=== PATIENT | male | born 1980 | race Caucasian/White ===

== ENCOUNTER 2020-02-12 12:02 | Inpatient (IN) | payer OTHER, SELFPAY ==
[2020-02-12] VITALS (21 sets, daily range): BP systolic 97–140; BP diastolic 53–79; PULSE 67–110; RESP 10–18; TEMP 36.6–43; O2SAT 96–100; BMI 19.2; BMI 18.3
--- NOTE | 2020-02-12 12:04 | XR_ITS ---
PROCEDURE: XR CHEST PORTABLE CLINICAL HISTORY: fall Blunt trauma with injury and pain, contusion/abrasion or hematoma following injury COMPARISON: CT CT CHEST W CON from 02/12/2020 FINDINGS: The cardiomediastinal silhouette and pulmonary vascularity are within normal limits. Small bleb is present in the right apex. Lungs are otherwise clear. No acute bony abnormalities. IMPRESSION: No acute findings. Dictated b Karson Dahl MD 02/12/2020 12:47 Karson Dahl MD in [facility] 02/12/2020 12:47
--- NOTE | 2020-02-12 12:04 | XR_ITS ---
PROCEDURE: XR FEMUR LT 2V CLINICAL INDICATION: trauma alert Posttraumatic pain COMPARISON: No exams were available for comparison FINDINGS: There is a comminuted fracture involving the intertrochanteric region of the left femur with extension into the subtrochanteric region. The mid distal aspect of the left femur have an unremarkable appearance. The joint spaces are well-preserved. No significant degenerative/arthritic changes. No erosive changes evident. Other findings:None. IMPRESSION: Comminuted intertrochanteric fracture the left femur with extension into the subtrochanteric region Dictated b Karson Dahl MD 02/12/2020 13:14 Karson Dahl MD in [facility] 02/12/2020 13:15
--- NOTE | 2020-02-12 12:07 | PC.NURSE ---
trauma alert cancelled by dr cruz
--- NOTE | 2020-02-12 12:14 | PC.NURSE ---
1208 Dr Ortiz paged. 1210 Dr Mcgowan speaking to Dr Ortiz.
--- NOTE | 2020-02-12 12:17 | CT_ITS ---
PROCEDURE: CT HEAD/BRAIN WO CON CLINICAL INDICATION: Trauma Alert, Fall from roof Head injury with headache/pain, contusion, abrasion or hematoma COMPARISON: No exams were available for comparison TECHNIQUE: Axial images obtained. All CT scans at the facility use one or more dose reduction, viz: automated exposure control, ma/kV adjustment per patient size (including targeted exams where dose is matched to indication, i.e. head), or iterative reconstruction technique. FINDINGS: No midline shift, mass effect, intracranial hemorrhage, hydrocephalus, or extra-axial fluid collection is evident. Nonspecific decreased attenuation adjacent to the anterior horn of the right lateral ventricle is noted as well subtle decreased attenuation in the medial aspect of the right occipital lobe. These could represent areas of chronic ischemic changes. Follow-up nonemergent MRI without and with gadolinium enhancement may confirm. Cannot exclude the possibility of an acute infarction in the medial aspect of the right occipital lobe. Please correlate with clinical parameters. The calvarium has an unremarkable appearance. No mastoid effusion. There is mild mucosal thickening of the ethmoid sinuses IMPRESSION: 1. No acute intracranial hemorrhage or calvarial fracture. 2. Subtle decreased attenuation in the medial aspect of the right occipital lobe which could represent an area of infarction age indeterminate. MRI may provide further evaluation as clinically warranted. Suspect small old lacunar infarction in the right periventricular region. Dictated b Karson Dahl MD 02/12/2020 13:00 Karson Dahl MD in [facility] 02/12/2020 13:00
--- NOTE | 2020-02-12 12:17 | CT_ITS ---
PROCEDURE: CT ABDOMEN PELVIS W CON CLINICAL INDICATION: Trauma Alert, Fall from roof Blunt trauma with injury and pain, contusion/abrasion or hematoma following injury COMPARISON: No exams were available for comparison TECHNIQUE: IV Contrast: 75ML OPTIRAY 350 Oral Contrast None Axial images obtained with sagittal and coronal reformats. All CT scans at the facility use one or more dose reduction, viz: automated exposure control, ma/kV adjustment per patient size (including targeted exams where dose is matched to indication, i.e. head), or iterative reconstruction technique. FINDINGS: LOWER THORAX: No acute finding ABDOMEN & PELVIS: The liver, spleen, adrenal glands and pancreas have an unremarkable appearance. There is some slight increased density the abdominal fat in the epigastric region at the level of the celiac axis. This is nonspecific. Unremarkable appearing kidneys. No intestinal obstruction or free air. No evidence of appendicitis or diverticulitis. No free fluid. There are scattered colonic diverticula without evidence of diverticulitis. There is a shattered comminuted fracture involving the intertrochanteric region of the left femur extending into the proximal femoral shaft. Increased soft tissue density present about the fracture site consistent with hematoma IMPRESSION: 1. Comminuted left intertrochanteric and proximal femoral shaft fracture with surrounding hematoma 2. No acute intra-abdominal or pelvic findings. 3. There is some nonspecific increased density of the fat in the epigastric region. This is of questionable clinical significance. Underlying inflammation is a consideration. Pancreatitis could cause this finding. Please correlate with appropriate laboratory values Dictated b Karson Dahl MD 02/12/2020 13:10 Karson Dahl MD in [facility] 02/12/2020 13:10
--- NOTE | 2020-02-12 12:17 | CT_ITS ---
PROCEDURE: CT CERVICAL SPINE WO CON CLINICAL INDICATION: Trauma Alert, Fall from roof Posttraumatic pain Neck injury with pain, contusion/abrasion or hematoma, cervical sprain/strain the COMPARISON: CT CT HEAD/BRAIN WO CON from 02/12/2020 TECHNIQUE: Axial images obtained with sagittal and coronal reformats. All CT scans at the facility use one or more dose reduction, viz: automated exposure control, ma/kV adjustment per patient size (including targeted exams where dose is matched to indication, i.e. head), or iterative reconstruction technique. Axial spiral CT scanning performed of the cervical spine beginning at the base of the skull and continuing to the upper T-spine. 3-D multiplanar reconstruction with 3-D manipulation of volumetric data set in image rendering was completed by the radiologist and/or technologist with the supervision of the radiologist on independent workstation. FINDINGS: Normal alignment. No acute fracture or dislocation. There is degenerative disc disease at C5-C6. The there is some straightening of the cervical lordosis nonspecific. There is mild lower cervical curvature convex left. There are scattered small cervical lymph nodes and there is some asymmetric increased soft tissue density in the left nasopharyngeal region. Nonemergent follow-up CT neck without and with contrast may provide further evaluation. IMPRESSION: 1. No acute fracture. 2. Straightening of lordosis with cervical curvature convex left. 3. Degenerative disc disease C5-C6. 4. Mildly prominent cervical lymph nodes with mild prominence of the nasopharyngeal mucosa on the left. Nonemergent follow-up without and with contrast may provide further evaluation. Dictated b Karson Dahl MD 02/12/2020 13:05 Karson Dahl MD in [facility] 02/12/2020 13:05
--- NOTE | 2020-02-12 12:19 | CT_ITS ---
PROCEDURE: CT CHEST W CON CLINCAL INDICATION: Trauma Alert, Fall Blunt trauma with injury and pain, contusion/abrasion or hematoma following injury Fall from COMPARISON: CT CT ABDOMEN PELVIS W CON from 02/12/2020 TECHNIQUE: IV Contrast: 75ml Optiray 350 Axial images obtained with sagittal and coronal reformats. All CT scans at the facility use one or more dose reduction, viz: automated exposure control, ma/kV adjustment per patient size (including targeted exams where dose is matched to indication, i.e. head), or iterative reconstruction technique. FINDINGS: HEART AND MEDIASTINAL STRUCTURES: Mild prominence of the thyroid gland on both sides. No mediastinal or hilar mass or adenopathy. No evidence of aortic aneurysm or dissection. No evidence mediastinal hematoma LUNGS AND PLEURAL SPACES: There is a small right apical blebs with mild fibrotic changes in the lung apices. No evidence of pneumothorax. There are few small noncalcified pulmonary nodules including a 3 and 4 mm and a 2 mm noncalcified nodule in the left upper lobe. Patchy density is present in the lingula inferiorly along the major fissure. There is hyperinflation with attenuation of the peripheral pulmonary vessels consistent with COPD BONY STRUCTURES: Mild thoracic scoliosis convex right. No acute fracture is identified UPPER ABDOMEN: Please see abdomen report ADDITIONAL FINDINGS: No other significant abnormalities. IMPRESSION: 1. No acute finding. 2. COPD with nonspecific nodular opacities in the left upper lobe. Suggest 6 month follow-up 3. Patchy subpleural infiltrate in the left lobe Dictated b Karson Dahl MD 02/12/2020 12:57 Karson Dahl MD in [facility] 02/12/2020 12:57
--- NOTE | 2020-02-12 12:19 | PC.NURSE ---
received patient to ed by wheelchair from home. pt is s/p fall approx 15 feet at 1130 today off of a roof. pt denies loc. pt c/o left femur pain. pt is awake and alert. pt denies neck or back pain. pt is pale and diaphoretic at this time. bp stable. trauma alert called. trauma team to bedside. c collar placed to patient. pt to cardiac, spo2,nibp monitoring. iv site obtained. pt undressed to inspect body for injury and warmed with warm blankets. dr cruz at bedside. awaiting further orders.
--- NOTE | 2020-02-12 12:23 | PC.NURSE ---
Pt to rad.
--- NOTE | 2020-02-12 12:23 | PC.NURSE ---
patient to ct by stretcher for trauma scans at this time.
[2020-02-12 12:30] LABS: Basophils # 0.1 K/mm3 (0-0.2); Basophils % 0.6 % (0.1-2.0); Eosinophils # 0.2 K/mm3 (0.0-0.4); Eosinophils % 1.3 % (0.1-12.0); Hematocrit 40.9 % (42.0-52.0); Hemoglobin 14.1 g/dL (14.1-18.0); Lymphocytes # 5.3 K/mm3 (0.7-4.5); Lymphocytes % 43.9 % (10-50); Mean Corpuscular HGB Conc 34.3 g/dL (31.8-35.4); Mean Corpuscular Hemoglobin 31.7 pg (27.0-31.2); Mean Corpuscular Volume 92.3 fl (80-94); Mean Platelet Volume 7.8 fl (7.4-10.4); Monocytes # 0.6 K/mm3 (0.1-1.0); Neutrophils % 49.3 % (37.0-80.0); Platelet Count 309 K/mm3 (142-424); Red Blood Count 4.43 M/mm3 (4.60-6.20); Red Cell Distribution Width 13.3 % (11.5-17.5); White Blood Count 12.1 K/mm3 (4.8-10.8)
[2020-02-12 12:32] LABS: Alanine Aminotransferase 32 U/L (12-78); Albumin Level 4.9 g/dl (3.5-5.0); Albumin/Globulin Ratio 1.4 (1.1-1.8); Alkaline Phosphatase 69 U/L (38-126); Anion Gap 18.1 mEq/L (5-15); Aspartate Amino Transferase 50 U/L (17-59); Bilirubin,Total 0.8 mg/dl (0.2-1.3); Blood Urea Nitrogen 13 mg/dl (9-20); Calcium 9.9 mg/dl (8.4-10.2); Carbon Dioxide 24 mmol/L (22.0-30.0); Chloride 100 mmol/L (98-107); Creatinine Clearance Estimated 80 mL/min (50-200); Estimated Glomerular Filt Rate 82 ml/min (>60); GFR (African American) 99 ML/MIN (>60); Globulin 3.4 g/dL (1.3-3.2); Glucose 97 mg/dl (74-100); Potassium 3.1 mmoL/L (3.5-5.1); Sodium 139 mmol/L (136-145); Total Protein,Serum 8.3 g/dl (6.3-8.2)
--- NOTE | 2020-02-12 12:32 | HMH.EDGENADL ---
ED Disposition Clinical Impression: Closed left hip fracture Qualifiers: Encounter type: initial encounter Qualified Code(s): S72.002A - Fracture of unspecified part of neck of left femur, initial encounter for closed fracture Fall from roof Qualifiers: Encounter type: initial encounter Qualified Code(s): W13.2XXA - Fall from, out of or through roof, initial encounter Disposition: Admitted As Inpatient Condition on Discharge: Fair - Critical Care Critical Care Time: No Attestation: On , the high probability of a clinically significant, sudden or life threatening deterioration of the following system(s) required my full and direct attention, intervention and personal management. The time I documented below is in addition to time spent performing reported procedures but includes the following listed in this critical care notation. Medical Decision Making - Thor Inquiry Pt receiving controlled substance: Yes Thor was queried for this patient: No Reason not queried -: Emergent pt cond-no time Risks and benefits of using a controlled substance: were not discussed with pt by me Vital Signs: 02/12/20 12:07 02/12/20 12:15 02/12/20 12:45 Temperature 98.0 F Temperature Source Oral Pulse Rate Pulse Rate [Right Radial] 85 83 96 H Respiratory Rate 17 Blood Pressure Blood Pressure [Right Arm] 102/73 L 118/64 117/73 Blood Pressure Mean [Right Arm] 82 82 87 Blood Pressure Source [Right Arm] Automatic Cuff Blood Pressure Position Blood Pressure Position [Right Arm] Sitting Sitting 02 Sat by Pulse Oximetry 98 100 Oxygen Delivery Method 02/12/20 13:14 02/12/20 13:43 02/12/20 14:22 Temperature Temperature Source Pulse Rate Pulse Rate [Right Radial] 71 70 78 Respiratory Rate Blood Pressure Blood Pressure [Right Arm] 109/54 L 97/53 L 106/57 L Blood Pressure Mean [Right Arm] 72 67 73 Blood Pressure Source [Right Arm] Automatic Cuff Automatic Cuff Automatic Cuff Blood Pressure Position Blood Pressure Position [Right Arm] Sitting Sitting Sitting 02 Sat by Pulse Oximetry 98 98 Oxygen Delivery Method Room Air Room Air 02/12/20 15:03 02/12/20 16:00 02/12/20 17:00 Temperature Temperature Source Pulse Rate Pulse Rate [Right Radial] 96 H Respiratory Rate Blood Pressure Blood Pressure [Right Arm] 122/74 104/60 L Blood Pressure Mean [Right Arm] 90 74 Blood Pressure Source [Right Arm] Automatic Cuff Blood Pressure Position Blood Pressure Position [Right Arm] Sitting 02 Sat by Pulse Oximetry Oxygen Delivery Method Simple Mask 02/12/20 17:44 Temperature 98 F Temperature Source Oral Pulse Rate 78 Pulse Rate [Right Radial] Respiratory Rate 16 Blood Pressure 104/78 L Blood Pressure [Right Arm] Blood Pressure Mean [Right Arm] Blood Pressure Source [Right Arm] Blood Pressure Position Sitting Blood Pressure Position [Right Arm] 02 Sat by Pulse Oximetry Oxygen Delivery Method Room Air - Lab Data Lab Results 02/12/20 12:00: WBC 12.1 H, RBC 4.43 L, Hgb 14.1, Hct 40.9 L, MCV 92.3, MCH 31.7 H, MCHC 34.3, RDW 13.3, Plt Count 309, MPV 7.8, Neut % (Auto) 49.3, Lymph % (Auto) 43.9, [place] % (Auto) 5.0, Eos % (Auto) 1.3, Baso % (Auto) 0.6, Neut # (Auto) 6.0, Lymph # (Auto) 5.3 H, [place] # (Auto) 0.6, Eos # (Auto) 0.2, Baso # (Auto) 0.1 02/12/20 12:00: Sodium 139, Potassium 3.1 L, Chloride 100, Carbon Dioxide 24, Anion Gap 18.1 H, BUN 13, Creatinine 1.00, Estimated Creat Clear 80, Estimated GFR 82, Est GFR ( Amer) 99, Glucose 97, Calcium 9.9, Total Bilirubin 0.8, AST 50, ALT 32, Alkaline Phosphatase 69, Total Protein 8.3 H, Albumin 4.9, Globulin 3.4 H, Albumin/Globulin Ratio 1.4 02/12/20 12:00: Amylase 82, Lipase 196 02/12/20 14:39: Urine Color Yellow, Urine Appearance Clear, Urine pH 7.0, Ur Specific [place] 1.010, Urine Protein Negative, Urine Glucose (UA) Negative, Urine Ketones Negative, Urine Blood Negative, Urine Nitrate Negative, Urine Bilirubi
--- NOTE | 2020-02-12 13:00 | PC.NURSE ---
FRIEND AT BEDSIDE
[2020-02-12 14:45] LABS: Microscopic, Urine URINE MICROSCOPIC (MICROSCOPIC)
--- NOTE | 2020-02-12 14:49 | PC.NURSE ---
Dr Mcgowan speaking with Dr Cruz who is on for service.
[2020-02-12 14:50] LABS: Appearance,Urine CLEAR (Clear); Bilirubin,Urine Negative (Negative); Blood, Urine Negative (Negative); Color,Urine YELLOW (Yellow); Glucose,Urine (UA) Negative (Negative); Ketones,Urine Negative (Negative); Leukocyte Esterase,Urine Negative (Negative); Nitrate,Urine Negative (Negative); Protein,Urine Negative (Negative); Urobilinogen,Urine 0.2 EU/dl (0.2)
--- NOTE | 2020-02-12 14:51 | PC.NURSE ---
anesthesia at bedside for surgical eval.
[2020-02-12 14:58] LABS: Squamous Epithelial Cell,Urine Occasional #/hpf (0-5)
--- NOTE | 2020-02-12 15:10 | PC.NURSE ---
PT UPDATED ON PLAN OF CARE
[2020-02-12 15:17] LABS: Adenovirus,PCR Not Detected (NotDetected); Bordetella Pertussis Not Detected (NotDetected); Chlamydophila Pneumoniae, PCR Not Detected (NotDetected); Coronavirus 19, PCR Not Detected (NotDetected); Coronavirus 229E Not Detected (NotDetected); Coronavirus NL63 Not Detected (NotDetected); Coronavirus OC43 Not Detected (NotDetected); Coronovirus HKU1,PCR Not Detected (NotDetected); Human Metapneumovirus Not Detected (NotDetected); Influenza A, PCR Not Detected (NotDetected); Influenza AH1, 2009 Not Detected (NotDetected); Influenza AH1, PCR Not Detected (NotDetected); Influenza AH3,PCR Not Detected (NotDetected); Influenza B, PCR Not Detected (NotDetected); Mycoplasma Pneumoniae, PCR Not Detected (NotDetected); Parainfluenza 1, PCR Not Detected (NotDetected); Parainfluenza 2, PCR Not Detected (NotDetected); Parainfluenza 3, PCR Not Detected (NotDetected); Parainfluenza 4, PCR Not Detected (NotDetected); Respiratory Syncytial Virus Not Detected (NotDetected); Rhinovirus/Enterovirus Not Detected (NotDetected)
--- NOTE | 2020-02-12 15:33 | PC.NURSE ---
Pt to remain in ED until COVID results are released.
[2020-02-12 15:42] LABS: Amylase 82 U/L (30-110); Lipase 196 U/L (23-300)
--- NOTE | 2020-02-12 16:35 | HMH.ACPN2 ---
<Em Hernandez - Last Filed: 02/12/20 17:15> Internal Medicine - PN: Subj *Date: 02/12/20 *Time: 17:15 Interval history: Mr. Harry is a 40yo male who fell 15 feet off of a roof and landed directly on his left hip. He was evaluated in the ER and found to have a left femur fracture. He is being admitted to Dr. Ortiz for surgery. Our office was called for a consult for his hypokalemia. He has no other medical problems. Exam Vital signs and Labs for Last 24 Hours: Temp Pulse Resp BP Pulse Ox 98.0 F 78 17 122/74 98 02/12/20 12:07 02/12/20 14:22 02/12/20 12:07 02/12/20 15:03 02/12/20 13:43 Laboratory Results - last 24 hr 02/12/20 12:00: WBC 12.1 H, RBC 4.43 L, Hgb 14.1, Hct 40.9 L, MCV 92.3, MCH 31.7 H, MCHC 34.3, RDW 13.3, Plt Count 309, MPV 7.8, Neut % (Auto) 49.3, Lymph % (Auto) 43.9, [place] % (Auto) 5.0, Eos % (Auto) 1.3, Baso % (Auto) 0.6, Neut # (Auto) 6.0, Lymph # (Auto) 5.3 H, [place] # (Auto) 0.6, Eos # (Auto) 0.2, Baso # (Auto) 0.1 02/12/20 12:00: Sodium 139, Potassium 3.1 L, Chloride 100, Carbon Dioxide 24, Anion Gap 18.1 H, BUN 13, Creatinine 1.00, Estimated Creat Clear 80, Estimated GFR 82, Est GFR ( Amer) 99, Glucose 97, Calcium 9.9, Total Bilirubin 0.8, AST 50, ALT 32, Alkaline Phosphatase 69, Total Protein 8.3 H, Albumin 4.9, Globulin 3.4 H, Albumin/Globulin Ratio 1.4 02/12/20 12:00: Amylase 82, Lipase 196 02/12/20 14:39: Urine Color Yellow, Urine Appearance Clear, Urine pH 7.0, Ur Specific [place] 1.010, Urine Protein Negative, Urine Glucose (UA) Negative, Urine Ketones Negative, Urine Blood Negative, Urine Nitrate Negative, Urine Bilirubin Negative, Urine Urobilinogen 0.2, Ur Leukocyte Esterase Negative, Urine RBC None, Urine WBC None, Ur Squamous Epith Cells Occasional, Urine Bacteria None I & O for Last 24 hours: Intake & Output 02/10/20 02/11/20 02/12/20 02/13/20 11:59 11:59 11:59 11:59 Weight 130 lb - Constitutional no acute distress - *Routine Cardiovascular Exam Present: RRR - *Routine Abdominal Exam Present: soft, normoactive bowel sounds. Absent: tenderness - *Routine Extremities Exam Absent: cyanosis, clubbing, edema - *Routine Skin Exam Present: warm. Absent: rash - *Routine Neurological Exam Present: alert, oriented X3 Assessment and Plan (1) Closed left hip fracture Current visit: Yes Status: Acute Qualifiers: Encounter type: initial encounter Qualified Code(s): S72.002A - Fracture of unspecified part of neck of left femur, initial encounter for closed fracture Category: Medical Code(s): S72.002A - Fracture of unspecified part of neck of left femur, initial encounter for closed fracture (2) Hypokalemia Current visit: Yes Status: Acute Category: Medical Code(s): E87.6 - Hypokalemia (3) Fall from roof Current visit: Yes Status: Acute Qualifiers: Encounter type: initial encounter Qualified Code(s): W13.2XXA - Fall from, out of or through roof, initial encounter Category: Medical Code(s): W13.2XXA - Fall from, out of or through roof, initial encounter - Assessment and plan all Dx Assessment and Plan for all problems:: Will start on potassium supplementation and also get an EKG prior to surgery. <Myron Cruz - Last Filed: 02/12/20 17:51> Internal Medicine - PN: Subj *Date: 02/12/20 *Time: 17:49 Exam Vital signs and Labs for Last 24 Hours: Temp Pulse Resp BP Pulse Ox 98 F 78 16 104/78 L 98 02/12/20 17:44 02/12/20 17:44 02/12/20 17:44 02/12/20 17:44 02/12/20 13:43 Laboratory Results - last 24 hr 02/12/20 12:00: WBC 12.1 H, RBC 4.43 L, Hgb 14.1, Hct 40.9 L, MCV 92.3, MCH 31.7 H, MCHC 34.3, RDW 13.3, Plt Count 309, MPV 7.8, Neut % (Auto) 49.3, Lymph % (Auto) 43.9, [place] % (Auto) 5.0, Eos % (Auto) 1.3, Baso % (Auto) 0.6, Neut # (Auto) 6.0, Lymph # (Auto) 5.3 H, [place] # (Auto) 0.6, Eos # (Auto) 0.2, Baso # (Auto) 0.1 02/12/20 12:00: Sodium 139, Potassium 3.1 L, Chloride 100, Carbo
--- NOTE | 2020-02-12 17:08 | PC.NURSE ---
Pt arrived to the floor at this time via stretcher.
--- NOTE | 2020-02-12 17:46 | HMH.ORTHHP ---
*Admission Date: 02/12/20 *Reason for consult:: L femur fracture *History of present illness: 40-year-old gentleman presented to the ER this afternoon after falling approximately 15 feet off of a roof. The time of injury was around 12 PM. This occurred on the job; he works for a [employer] and this is a Worker's Compensation injury. He reports claim has already been filed. He reports pain localized to the left hip, no pain in any other extremity. No neck pain, no head pain, no current dizziness or chest pain, no abdominal pain. No numbness or tingling in the left lower extremity. No open wounds such as abrasions, lacerations or any areas of ecchymosis. He presented to the ER as a trauma and full primary and secondary surveys completed by the ER physician. CT scans of the head, cervical spine, abdomen/pelvis were performed and negative. He denies LOC during the event. He has never injured this hip or had surgery on this hip previously. He does not currently have a primary care physician and denies underlying medical issues. He denies alcohol use but smokes 1 pack of cigarettes at at least 1 joint (THC) per day. No other illicit drug use reported. He has had surgery on B/L wrists due to a fall with simultaneous B/L wrist fractures. He reports no daily prescription medication usage and no known drug allergies. He lives in [place] with his significant other in a ground level apartment. [facility] History I have reviewed the patient's past medical history: Yes Medical History: Denies:: Cancer, Diabetes Mellitus Type 1, Diabetes Mellitus Type 2, MRSA *Have you ever received a pneumonia vaccine?: No *Have you received a flu vaccine this season?: No Other Surgeries: Yes: Other (Bilateral wrist sx) Amputation: No Fractures: Yes - *Social History Last grade of school completed: High school graduate Smoking Status: Current every day smoker Tobacco Type: cigarettes # Packs/Day (cigarettes): 1 Alcohol Intake: never Substance Use Type: marijuana Last Used Substance: days (ago) *Occupational Status:: employed Housing: apartment Household Members: significant other *Travel in the last 8 weeks: None Family Hx:: Diabetes, Heart Attack Review of Systems - Review of Systems Review of systems:: pertinent systems reviewed and negative unless documented below - Constitutional Denies chills, Denies fever(s) - Eyes Denies blurry vision - ENT Denies abnormal hearing, Denies dizziness - *Cardiovascular Denies chest pain, Denies shortness of breath, Denies rapid, pounding, or irregular heartbeat - *Respiratory Denies cough, Denies shortness of breath - *Gastrointestinal Denies abdominal pain - *Genitourinary Denies difficulty urinating - *Musculoskeletal Reports joint pain - Integumentary/Breasts Denies wounds - *Neurologic Denies headache(s), Denies numbness, Denies weakness Meds Home Medications Medication Instructions Recorded Confirmed Type No Known Home Medications 02/12/20 02/12/20 History Allergies Allergy/AdvReac Type Severity Reaction Status Date / Time No Known Allergies Allergy Verified 02/12/20 12:18 Exam Vital signs and Labs for Last 24 Hours: Temp Pulse Resp BP Pulse Ox 98 F 78 16 104/78 L 98 02/12/20 17:44 02/12/20 17:44 02/12/20 17:44 02/12/20 17:44 02/12/20 13:43 Laboratory Results - last 24 hr 02/12/20 12:00: WBC 12.1 H, RBC 4.43 L, Hgb 14.1, Hct 40.9 L, MCV 92.3, MCH 31.7 H, MCHC 34.3, RDW 13.3, Plt Count 309, MPV 7.8, Neut % (Auto) 49.3, Lymph % (Auto) 43.9, [place] % (Auto) 5.0, Eos % (Auto) 1.3, Baso % (Auto) 0.6, Neut # (Auto) 6.0, Lymph # (Auto) 5.3 H, [place] # (Auto) 0.6, Eos # (Auto) 0.2, Baso # (Auto) 0.1 02/12/20 12:00: Sodium 139, Potassium 3.1 L, Chloride 100, Carbon Dioxide 24, Anion Gap 18.1 H, BUN 13, Creatinine 1.00, Estimated Creat Clear 80, Estimated GFR 82, Est GFR ( Amer) 99, Glucose 97, Calcium 9.9, Total Bilirubin 0.8, AST 50, ALT 32, Alkaline Maggi
--- NOTE | 2020-02-12 17:49 | ECG_ITS ---
APPROVED REPORT Exam: Resting ECG HR:56 bpm ECG Measurements Heart Rate 56 AXES GA 130 P 65 QRSd 74 QRS 68 QT 464 T 61 QTc 447 <Conclusion> Sinus bradycardia with sinus arrhythmia Otherwise normal ECG Electronically signed by : Renato Kaminski, 02/13/2020 07:51:48
--- NOTE | 2020-02-12 18:34 | XR_ITS ---
PROCEDURE: XR HIP LT 2-3V W/PELVIS CLINICAL INDICATION: LEFT HIP ORIF USING C-ARM GUIDANCE COMPARISON: No exams were available for comparison FINDINGS: Fluoroscopy time: 11 minutes and 43 seconds C-arm is utilized for ORIF the left intertrochanteric fracture. Multiple images are submitted during the procedure showing placement of a long intramedullary ame stabilized with cortical screws with 2 gamma nails with good alignment of the fracture fragments. IMPRESSION: Status post ORIF left intertrochanteric fracture with good alignment Dictated b Karson Dahl MD 02/13/2020 06:47 Karson Dahl MD in [facility] 02/13/2020 06:47
--- NOTE | 2020-02-12 19:47 | HMH.ANESCL ---
[facility] Anesthesia Checklist - Patient Identification Patient Identification: Arm Band, Verbal (Name & ) - Structural Data Admitted From: Inpatient Planned Operative Procedure/s: Left hip IM nailing Consent for Planned Operative Procedure(s) Verified: Yes Verified Documents: Surgical Consent, History and Physical - NPO Status Verified Time NPO: 11:30 - Chart Verification Results Verified: CBC, BMP - Additional verifications Anesthesia Reactions: No - Airway Assessment C-Spine Mobility Assessed: Yes (MP 2, TMD 3, Full neck ROM, pink tongue, adequate mouth opening) TMJ Mobility Assessed: Yes Dentition: Edentulous - Neurological Assessment Level of Consciousness: Awake, Alert, Appropriate, Follows Commands Hx Seizures: No Numbness or tingling in extremities: No - Anesthesia Plan Anesthesia Risk discussed: Yes Anesthesia Plan: Verified ASA Class: II (Emergent) Anesthesia Type: General [facility] History I have reviewed the patient's past medical history: Yes Medical History: Denies:: Cancer, Diabetes Mellitus Type 1, Diabetes Mellitus Type 2, MRSA *Have you ever received a pneumonia vaccine?: No *Have you received a flu vaccine this season?: No Anesthesia experience/problems:: None Amputation: No Fractures: Yes Comment: Left wrist ORIF - *Social History Last grade of school completed: High school graduate Smoking Status: Current every day smoker Tobacco Type: cigarettes # Packs/Day (cigarettes): 1 Alcohol Intake: never Substance Use Type: marijuana Last Used Substance: days (ago) *Occupational Status:: employed Housing: apartment Household Members: significant other *Travel in the last 8 weeks: None Family Hx:: Diabetes, Heart Attack
--- NOTE | 2020-02-12 22:56 | P.PN_ITS ---
[facility] Anesthesia Record Part I Intake, IV Amount: 1,400 Estimated blood loss (mL): 250 Urine output (mL): 0 (NM) Blood Products used (#): none Blood Pressure: 125/74 SaO2: 96 Pulse Rate: 106 Respiratory Rate: 10 Temperature: 99.0 F Patient is:: Drowsy, Stable Stable to PACU at:: 22:50
--- NOTE | 2020-02-12 23:18 | HMH.OPNOTE ---
Date of procedure: 02/12/20 Pre-op Diagnosis:: intertrochanteric fracture L femur Post-op Diagnosis:: intertrochanteric fracture L femur Procedure performed:: intramedullary nail L femur Surgeon:: Tiana Ortiz MD Track Laying Equipment Operator(s):: Asher Cross CLASP MACHINE OPERATOR:: Arcenio Slaughter Anesthesia: GETA Estimated blood loss (mL): 250 Clinical Note:: 40-year-old gentleman presented to the ER this afternoon after falling approximately 15 feet off of a roof. The time of injury was around 12 PM. This occurred on the job; he works for a [employer] company and this is a Worker's Compensation injury. He reports claim has already been filed. He reports pain localized to the left hip, no pain in any other extremity. No neck pain, no head pain, no current dizziness or chest pain, no abdominal pain. No numbness or tingling in the left lower extremity. No open wounds such as abrasions, lacerations or any areas of ecchymosis. He presented to the ER as a trauma and full primary and secondary surveys completed by the ER physician. CT scans of the head, cervical spine, abdomen/pelvis were performed and negative. He denies LOC during the event. X-rays of the L femur revealed an intertrochanteric femur fracture, comminuted with subtrochanteric extension. He has never injured this hip before or had surgery on this hip previously. He does not currently have a primary care physician and denies underlying medical issues. He denies alcohol use but smokes 1 pack of cigarettes at at least 1 joint (THC) per day. No other illicit drug use reported. He has had surgery on B/L wrists due to a fall with simultaneous B/L wrist fractures. He reports no daily prescription medication usage and no known drug allergies. I discussed the nature of the patient's injury with him and his significant other, along with the risks/benefits of both operative and nonoperative treatments. I discussed the risks of malunion, nonunion, lower extremity malrotation and persistent pain/limp, decubitus ulcers, DVT/PE, pneumonia, and other medical complications of prolonged immobilization that would be at risk with nonoperative treatment. I also discussed the risks of surgical treatment, including but not limited to: bleeding, infection, neurovascular damage, fracture propagation changing the surgical plan, hardware failure, nonunion, malunion, persistent pain/limp and/or disability despite surgical intervention, need for later revision surgery or hardware removal, and the risks of anesthesia including heart attack, stroke and even . The patient vocalized understanding of the above risks and has elected to proceed with surgery. My recommendation is for an intramedullary nail of the left femur. Informed consent was obtained. He was seen by Dr. Cruz pre-operatively, who deemed the patient at low and acceptable risk for the procedure. Operative findings:: intertrochanteric fracture L femur, comminuted with subtrochanteric extension Implants: Pal [employer]hew Intertan antegrade femoral IMN Nail = 10 x 40cm, 125 degree Compression/Lag screws = 105 / 100mm Distal interlocking screws (2) = 5.0 x 42.5mm, 5.0 x 57.5mm Operative note:: The patient was identified in preoperative holding and the L hip signed by myself. Consent was reviewed with the patient and all questions answered. He was seen by CLASP MACHINE OPERATOR and the decision made to perform general endotracheal anesthesia. The patient was then taken to the operating room where 1 gram cefazolin was administered intravenously and general anesthsia induced with the patient on his bed. Once the patient was anesthetized, he was transferred to the fracture table. The perineum was snugged up to the perineal post and BLE secured on the table. The L leg was secured to the foot plate of the fracture table and the R leg placed in a flexed/externally rotated position on well-padded leg nowak. Timeout was performed, identifying the correct patient, correct procedure and correct site. Next the L hip
--- NOTE | 2020-02-12 23:31 | PC.NURSE ---
patient up to floor from surgery via stretcher by staff.
[2020-02-13] VITALS (13 sets, daily range): BP systolic 114–138; BP diastolic 50–71; PULSE 63–97; RESP 14–18; TEMP 36.5–36.9; O2SAT 97–100; BMI 19.1
--- NOTE | 2020-02-13 03:27 | PC.NURSE ---
Pt A&OX4. pt c/o of L hip and leg pain medicated per AUG. Lungs CTA. IS has been in used while awake reach 1999. Surgical dressing in place c/d/i. ice pack and abductor pillow in place. SCUD on right leg. Pt has tolerated diet well.
--- NOTE | 2020-02-13 04:00 | PC.NURSE ---
Pt A&OX4. pt c/o of L hip and leg pain medicated per AUG. Lungs CTA. IS has been in used while awake reach 1999. Surgical dressing in place c/d/i. ice pack in place. SCUD on right leg. Pt has tolerated diet well
[2020-02-13 06:37] LABS: Chloride 106 mmol/L (98-107); Sodium 137 mmol/L (136-145)
[2020-02-13 06:38] LABS: Potassium 4.3 mmoL/L (3.5-5.1)
[2020-02-13 06:40] LABS: Blood Urea Nitrogen 14 mg/dl (9-20); Creatinine Clearance Estimated 84 mL/min (50-200); Estimated Glomerular Filt Rate 93 ml/min (>60); GFR (African American) 112 ML/MIN (>60)
[2020-02-13 06:41] LABS: Anion Gap 9.3 mEq/L (5-15); Carbon Dioxide 26 mmol/L (22.0-30.0); Glucose 136 mg/dl (74-100)
[2020-02-13 06:53] LABS: Basophils % 0.1 % (0.1-2.0); Eosinophils % 0.1 % (0.1-12.0); Lymphocytes # 1.4 K/mm3 (0.7-4.5); Mean Corpuscular HGB Conc 34.6 g/dL (31.8-35.4); Mean Platelet Volume 8.1 fl (7.4-10.4); Red Cell Distribution Width 13.5 % (11.5-17.5)
[2020-02-13 07:00] LABS: Hematocrit 27.6 % (42.0-52.0); Lymphocytes % 9.6 % (10-50); Mean Corpuscular Hemoglobin 31.9 pg (27.0-31.2); Mean Corpuscular Volume 92.3 fl (80-94); Neutrophils # 11.8 K/mm3 (1.8-7.8); Neutrophils % 83.1 % (37.0-80.0); Platelet Count 179 K/mm3 (142-424); Red Blood Count 2.99 M/mm3 (4.60-6.20); White Blood Count 14.2 K/mm3 (4.8-10.8)
[2020-02-13 07:03] LABS: Hemoglobin 9.5 g/dL (14.1-18.0)
--- NOTE | 2020-02-13 07:07 | HMH.ANESII ---
[facility] Anesthesia Record Part II Discharge Time: 23:20 Destination: Medical Surgical Department PACU nurse assessment reviewed?: Yes Patient Condition:: Good Anesthesia Complications:: None Swallowing reflex intact?: Yes Cyanosis?: No Blood Pressure: 125/67 Pulse Rate: 82 Temperature: 98.5 F Mental Status: Alert & Oriented Pain level:: 4 Nausea and/or vomitting:: Nauseated Intake, IV Amount: 0
--- NOTE | 2020-02-13 07:16 | HMH.ACPN2 ---
Internal Medicine - PN: Subj *Date: 02/13/20 *Time: 07:16 Interval history: Patient with no new complaints today, still has a little numbness in his left foot, he is hungry and wants breakfast, he is anxious to go home. Exam Vital signs and Labs for Last 24 Hours: Temp Pulse Resp BP Pulse Ox 98.5 F 82 16 125/67 99 02/13/20 07:09 02/13/20 07:09 02/13/20 06:15 02/13/20 07:09 02/13/20 06:15 Laboratory Results - last 24 hr 02/12/20 12:00: WBC 12.1 H, RBC 4.43 L, Hgb 14.1, Hct 40.9 L, MCV 92.3, MCH 31.7 H, MCHC 34.3, RDW 13.3, Plt Count 309, MPV 7.8, Neut % (Auto) 49.3, Lymph % (Auto) 43.9, [place] % (Auto) 5.0, Eos % (Auto) 1.3, Baso % (Auto) 0.6, Neut # (Auto) 6.0, Lymph # (Auto) 5.3 H, [place] # (Auto) 0.6, Eos # (Auto) 0.2, Baso # (Auto) 0.1 02/12/20 12:00: Sodium 139, Potassium 3.1 L, Chloride 100, Carbon Dioxide 24, Anion Gap 18.1 H, BUN 13, Creatinine 1.00, Estimated Creat Clear 80, Estimated GFR 82, Est GFR ( Amer) 99, Glucose 97, Calcium 9.9, Total Bilirubin 0.8, AST 50, ALT 32, Alkaline Phosphatase 69, Total Protein 8.3 H, Albumin 4.9, Globulin 3.4 H, Albumin/Globulin Ratio 1.4 02/12/20 12:00: Amylase 82, Lipase 196 02/12/20 14:39: Urine Color Yellow, Urine Appearance Clear, Urine pH 7.0, Ur Specific [place] 1.010, Urine Protein Negative, Urine Glucose (UA) Negative, Urine Ketones Negative, Urine Blood Negative, Urine Nitrate Negative, Urine Bilirubin Negative, Urine Urobilinogen 0.2, Ur Leukocyte Esterase Negative, Urine RBC None, Urine WBC None, Ur Squamous Epith Cells Occasional, Urine Bacteria None 02/12/20 15:12: Chlamy pneumoniae PCR Not detected, Adenovirus (PCR) Not detected, B. pertussis DNA (PCR) Not detected, Coronavirus OC43 (PCR) Not detected, Coronavirus HKU1 (PCR) Not detected, Coronavirus 229E (PCR) Not detected, COVID-19 PCR Not detected, Coronavirus NL63 (PCR) Not detected, Human Metapneumovir PCR Not detected, Influenza A (H1) PCR Not detected, Influ A (H1N1/09) PCR Not detected, Influenza A (H3) PCR Not detected, Influenza Type A (PCR) Not detected, Influenza Type B (PCR) Not detected, M. pneumoniae (PCR) Not detected, Parainfluenza 1 (PCR) Not detected, Parainfluenza 2 (PCR) Not detected, Parainfluenza 3 (PCR) Not detected, Parainfluenza 4 (PCR) Not detected, RSV (PCR) Not detected, Entero/Rhino (PCR) Not detected 02/13/20 06:15: WBC 14.2 H, RBC 2.99 L D, Hgb 9.5 L D, Hct 27.6 L, MCV 92.3, MCH 31.9 H, MCHC 34.6, RDW 13.5, Plt Count 179 D, MPV 8.1, Neut % (Auto) 83.1 H, Lymph % (Auto) 9.6 L, [place] % (Auto) 7.0, Eos % (Auto) 0.1, Baso % (Auto) 0.1, Neut # (Auto) 11.8 H, Lymph # (Auto) 1.4, [place] # (Auto) 1.0, Eos # (Auto) 0.0, Baso # (Auto) 0.0 02/13/20 06:15: Sodium 137, Potassium 4.3 D, Chloride 106, Carbon Dioxide 26, BUN 14, Creatinine 0.90, Glucose 136 H D, Calcium 8.0 L D Vital Signs - 24 hr 02/12/20 12:07 02/12/20 12:15 02/12/20 12:45 Temperature 98.0 F Pulse Rate Pulse Rate [Apical] Pulse Rate [Right Brachial] Pulse Rate [Right Radial] 85 83 96 H Respiratory Rate 17 Blood Pressure Blood Pressure [Right Arm] 102/73 L 118/64 117/73 02 Sat by Pulse Oximetry 98 100 02/12/20 13:14 02/12/20 13:43 02/12/20 14:22 Temperature Pulse Rate Pulse Rate [Apical] Pulse Rate [Right Brachial] Pulse Rate [Right Radial] 71 70 78 Respiratory Rate Blood Pressure Blood Pressure [Right Arm] 109/54 L 97/53 L 106/57 L 02 Sat by Pulse Oximetry 98 98 02/12/20 15:03 02/12/20 16:00 02/12/20 17:44 Temperature 98 F Pulse Rate 78 Pulse Rate [Apical] Pulse Rate [Right Brachial] Pulse Rate [Right Radial] 96 H Respiratory Rate 16 Blood Pressure 104/78 L Blood Pressure [Right Arm] 122/74 104/60 L 02 Sat by Pulse Oximetry 02/12/20 17:50 02/12/20 18:00 02/12/20 22:50 Temperature 98.0 F 99.0 F Pulse Rate Pulse Rate [Apical] 67 106 H Pulse Rate [Right Brachial] Pulse Rate [Right Radial] 67 Respiratory Rate 18 18 10 L Blood Pressure Bloo
--- NOTE | 2020-02-13 08:32 | P.CONPHA_ITS ---
[facility] Pharmacy VTE Monitoring - Patient Demographics Admission date: 02/13/20 Report Date: 02/13/20 Time: 08:32 Allergies/Adverse Reactions: Patient Allergies No Known Allergies Allergy (Verified 02/12/20 12:18) Height: 1.7 m Weight: 55.395 kg Patient Problems: Current Active Problems Closed left hip fracture (Acute) Fall from roof (Acute) Hypokalemia (Acute) Anemia (Acute) - VTE Risk Labs: VTE Related Lab Results Hgb 9.5 g/dL (14.1-18.0) L D 02/13/20 06:15 Hct 27.6 % (42.0-52.0) L 02/13/20 06:15 Plt Count 179 K/mm3 (142-424) D 02/13/20 06:15 BUN 14 mg/dl (9-20) 02/13/20 06:15 Creatinine 0.90 mg/dl (0.66-1.25) 02/13/20 06:15 Estimated Creat Clear 84 mL/min (50-200) 02/13/20 06:15 Was VTE Risk Assessment Performed: Yes VTE Score: 2 VTE Risk Level: Very Low Risk Clinical Trial Participant: No - Prophylaxis VTE Prophylaxis Ordered?: Yes Types of VTE Prophylaxis: TEDS Knee High, IPCS Knee High (POST OP)
--- NOTE | 2020-02-13 09:35 | HMH.PTEV ---
Physical Therapy Evaluation Rehab PT IP Evaluation Start: 02/12/20 23:08 Freq: ONCE Status: Active Protocol: Document 02/13/20 09:31 PHOCONNIE (Rec: 02/13/20 09:35 PHORMARLIN [id number]) Subjective/History History History 40 yowm adm to [facility] with L hip fx after fall from a roof, now S/P OR. Subjective Subjective Pt c/o pain in the L hip and numbness in the R foot. Rehab PT IP Eval Objective Appearance Patient Behavior Appropriate Patient Orientation Person,Place,Time Difficulty following instructions none Speech Pattern Clear Ambulation Patient Able to Ambulate Yes Ambulation Observation IP General Gait Pattern Observation Antalgic Gait,Decrease Weight Bear (L) Ambulation Distance (feet) 15 Ambulation Assistive Device Rolling Walker Ambulation Ability Contact Guard/Hand Hold Balance Ability to Arise Able, uses arms to help Sitting Balance Steady, safe Standing Balance Narrow stance w/o support Dynamic Sitting Balance Ability Good Dynamic Standing Balance Ability Good Transfers Bed Transfer Ability Contact Guard/Hand Hold Chair Transfer Ability Contact Guard/Hand Hold Sit to Stand Bed Transfer Ability Contact Guard/Hand Hold Sit to Stand Chair Transfer Ability Contact Guard/Hand Hold ROM All Extremities PT ROM Status WFL MMT All Extremities PT MMT WFL Abnormal MMT Grade except L LE grossly 3/5 Rehab PT IP prob,goals,plan Problems Date of Evaluation: 02/13/20 PT IP Problems Bed Mobility,Transfers,Gait Rehab Potential Rehab Potential Good Equipment Needs Assistive Devices Rolling / Wheeled Walker Plan PT Intervention Plan Bed Mobility,Transfers,Gait, Therapeutic Exercise PT Plan Frequency BID Duration LOS Discharge Goals Bed Transfer Ability Supervision/Stand by Sit to Stand Chair Transfer Ability Supervision/Stand by Ambulation Assistive Device Rolling Walker Ambulation Distance (feet) 30 Discharge Plan PT Discharge Plan Pt is appropriate to return home once medically stable. Outpatient PT is acceptable. G -code Required No Eval Complexity Eval Charge Codes 49954 - Moderate Complexity PHYSICIAN CERTIFICATION: I certify the specified therapy services for Frandy Harry are required, authorized, and reviewed every 30 days.
--- NOTE | 2020-02-13 09:39 | HMH.OTEV ---
OT Inpatient Evaluation Rehab OT IP Evaluation Start: 02/12/20 23:08 Freq: ONCE Status: Complete Protocol: Document 02/13/20 09:34 LAWSON (Rec: 02/13/20 09:[address] [facility]ITAL[facility] [id number]) Rehab OT IP Assessment Subjective History Pt oriented x 3 on arrival. Pt admitted via ED on 02/12/20 due to a fall of 15+ feet from roof; resulting in a L hip fx . Pt claims prior to fall he was completely independent with all ADL's and IADL's. Pt worked fulltime in [employer]. Pt did not require any type of AE. Pt reports mild pain prior to beginning OT evaluation. Subjective I know it's going to hurt when I get up. Objective Patient Orientation Person,Place,Birthday Upper Extremity Gross ROM WFL Bed Mobility bed mobility-scooting,bed mobility - supine/sit,bed mobility - rolling Assist Level Minimal x 1 (25% assist) Transfer Training Sit/Stand Transfer Assist Level Contact Guard/Hand Hold Chair Transfer Assistive Devices Rolling Walker Lower Body Dressing Ability Assistance X1 Rehab OT IP prob,goals,plan Problems Date of Evaluation: 02/13/20 OT IP Problems Bed Mobility,Transfers,Gait, Balance,Self care,Safety Rehab Potential Rehab Potential Good Equipment Needs Assistive Devices Rolling / Wheeled Walker Plan OT intervention Plan Bed Mobility,Transfers,Gait, Balance,Self care,Safety, Therapeutic Exercise OT Plan Frequency Daily Duration LOS Discharge Goals Bed Mobility Ability Standby Assistance Sit to Stand Chair Transfer Ability Supervision/Stand by Chair Transfer Ability Supervision/Stand by Chair Transfer Technique Sit to/from Ambulatory Chair Transfer Assistive Devices Rolling Walker Feeding Ability Independent Lower Body Dressing Ability Assistance X1 Upper Body Dressing Ability Standby Assistance Bathing Ability Assistance x1 Performing Toilet Hygiene Ability Standby Assistance Discharge Plan OT Discharge Plan Pt would benefit from outpatient therapy services after discharge from [facility] in order to increase
--- NOTE | 2020-02-13 10:40 | SW/DCPLANNER ---
I have spoke with this patient regarding discharge plans post hip fx. Patient stated that he resides in [place] with his significant other. Patient stated that he has been to PT in the past as an outpatient in [place]. Patient stated that he prefers to use crutches rather than a walker. I have notified nursing staff for crutches. Patient stated that he has no other needs at home at this time. Patient stated that he may get to discharge home later today.
--- NOTE | 2020-02-13 12:51 | HMH.ORTHPN ---
Subjective Date: 02/13/20 Time: 12:00 Principal diagnosis: L femur fracture Interval history: The patient is doing well this morning. He has pain in the L hip but has been out of bed with therapy and did well. He's ambulating with a walker and has been up to use the bathroom independently. Denies numbness or tingling in the LLE, no drainage from L hip dressings, no fevers/chills overnight. PN: Obj Ex Vital signs: Temp Pulse Resp BP Pulse Ox 97.7 F 74 16 115/69 99 02/13/20 12:00 02/13/20 12:00 02/13/20 12:00 02/13/20 12:00 02/13/20 12:00 - Constitutional no acute distress - Routine HEENT Exam Head: Present: normocephalic Eye: Present: EOMI ENT: Present: mucous membranes moist - Routine Neck Exam Present: trachea midline - Routine Respiratory Exam Absent: respiratory distress, wheezes - Routine Cardiovascular Exam Present: RRR - Routine Abdominal Exam Present: soft. Absent: tenderness - Routine Extremities Exam Comments: L hip dressing c/d/i, no strikethrough L hip moderate tenderness to palpation +DF/PF/EHL BLE SILT distally BLE in all distributions BLE calves soft, non-tender; negative Cornelius's palpable pedal pulses BLE, feet warm/pink - Routine Skin Exam Present: warm - Routine Neurological Exam Present: alert, oriented X3, moving all extremities, normal tone, vision grossly intact, hearing grossly intact. Absent: sensory deficit, motor deficit, altered mental status - Routine Psychiatric Exam Present: normal affect Progress Note: A&P (1) Closed left hip fracture Status: Acute Current Visit: Yes (2) Hypokalemia Status: Acute Current Visit: Yes (3) Fall from roof Status: Acute Current Visit: Yes (4) Anemia Status: Acute Current Visit: Yes Assessment and Plan for All Diagnoses:: 40yo M POD 1 s/p IMN L femur for comminuted IT fx after falling 15' from roof in work-related accident -- WBAT LLE, walker/crutches for ambulation -- PT/OT eval this morning; deemed appropriate for OPPT -- ice pack L hip as needed -- DVT prophy: SCD RLE. Will discharge on aspirin for DVT prophy x1 month. -- finish 24hr prophy antibiotics -- encourage IS 10x/hr while awake -- medically appropriate for d/c home per Dr. Cruz, recommends iron supplementation -- dispo planning: d/c home today with significant other, f/u in clinic next week (02/20/20 at 3:15pm). Written d/c instructions given to patient.
--- NOTE | 2020-02-13 13:00 | HMH.DCSUM ---
General - General Admission date:: 02/12/20 Discharge date: 02/13/20 HPI HPI: 40-year-old gentleman presented to the ER this afternoon after falling approximately 15 feet off of a roof. The time of injury was around 12 PM. This occurred on the job; he works for a [employer] company and this is a Worker's Compensation injury. He reports claim has already been filed. He reports pain localized to the left hip, no pain in any other extremity. No neck pain, no head pain, no current dizziness or chest pain, no abdominal pain. No numbness or tingling in the left lower extremity. No open wounds such as abrasions, lacerations or any areas of ecchymosis. He presented to the ER as a trauma and full primary and secondary surveys completed by the ER physician. CT scans of the head, cervical spine, abdomen/pelvis were performed and negative. He denies LOC during the event. He has never injured this hip or had surgery on this hip previously. He does not currently have a primary care physician and denies underlying medical issues. He denies alcohol use but smokes 1 pack of cigarettes at at least 1 joint (THC) per day. No other illicit drug use reported. He has had surgery on B/L wrists due to a fall with simultaneous B/L wrist fractures. He reports no daily prescription medication usage and no known drug allergies. He lives in [place] with his significant other in a ground level apartment. Hospital Course Hospital Course: The patient underwent IMN L femur on 02/12/20 without complication. He was admitted to the med/surg floor post-operatively for routine post-surgical care. Pain medication was available as needed. Ice pack applied to L hip and SCD placed on RLE. IV antibiotics were continued for routine post-op prophy. On the morning of POD 1 he was deemed medically appropriate for d/c by Dr. Cruz. PT/OT evaluations were completed and they believed he was appropriate for d/c home with outpatient PT. The patient was eating well, voiding independently, and able to mobilize from bed and ambulate to bathroom with minimal assistance using a walker. He was appropriate for d/c home POD 1 with his significant other. Aspirin is recommended for DVT prophy, 325mg daily x1 month. Discharge instructions were reviewed verbally with the patient and a typed handout provided at discharge. Objective Vital signs: Temp Pulse Resp BP Pulse Ox 97.7 F 74 16 115/69 99 02/13/20 12:00 02/13/20 12:00 02/13/20 12:00 02/13/20 12:00 02/13/20 12:00 no acute distress - *Routine HEENT Exam Head: Present: normocephalic Eye: Present: EOMI ENT: Present: mucous membranes moist - *Routine Neck Exam Present: trachea midline - *Routine Respiratory Exam Absent: respiratory distress, wheezes - *Routine Cardiovascular Exam Present: RRR - *Routine Abdominal Exam Present: soft. Absent: tenderness - *Routine Extremities Exam Comments: L hip dressing c/d/i, no strikethrough L hip moderate tenderness to palpation +DF/PF/EHL BLE SILT distally BLE in all distributions BLE calves soft, non-tender; negative Cornelius's palpable pedal pulses BLE, feet warm/pink - *Routine Skin Exam Present: warm - *Routine Neurological Exam Present: alert, oriented X3, moving all extremities, normal tone, vision grossly intact, hearing grossly intact, normal speech. Absent: sensory deficit, motor deficit, altered mental status Results Completed studies during hospitalization [Text1]: Laboratory Results - last 72 hr 02/12/20 02/12/20 02/12/20 12:00 12:00 12:00 WBC 12.1 H RBC 4.43 L Hgb 14.1 Hct 40.9 L MCV 92.3 MCH 31.7 H MCHC 34.3 RDW 13.3 Plt Count 309 MPV 7.8 Neut % (Auto) 49.3 Lymph % (Auto) 43.9 [place] % (Auto) 5.0 Eos % (Auto) 1.3 Baso % (Auto) 0.6 Neut # (Auto) 6.0 Lymph # (Auto) 5.3 H [place] # (Auto) 0.6 Eos # (Auto) 0.2 Baso # (Auto) 0.1 Sodium 139 Potassium 3.1 L Chloride
--- NOTE | 2020-02-13 14:32 | HMH.PHAINT ---
DISCHARGE COUNSELING COMPLETED ON PATIENT. NEW PRESCRIPTIONS FOR PERCOCET AND ASPIRIN. PERCOCET WAS PRINTED AND PATIENT CAN BUY ASPIRIN OTC. PATIENT VERBALIZED UNDERSTANDING AND HAD NO QUESTIONS AT THIS TIME. -JOSE ROBERTO FREED, BRIANNAD
== END 2020-02-13 14:35 | disposition home or self-care (01) | DRG 482 ==
LOC: ER 13:32 → 2ND 15:00 → OR 19:31 → 2ND 19:37
PROVIDERS: Family Medicine; Admitting Provider Orthopaedic Surgery; Emergency Provider Emergency Medicine; Visit Provider Orthopaedic Surgery
PROC: (CPT 27245; principal; 2020-02-12 18:00)
DX: S72.142A Displaced intertrochanteric fracture of left femur, initial encounter for closed fracture (principal); W13.2XXA Fall from, out of or through roof, initial encounter; Y93.H3 Activity, building and construction; Y92.61 Building [any] under construction as the place of occurrence of the external cause; Z72.0 Tobacco use; D64.9 Anemia, unspecified; E87.6 Hypokalemia
CPT/HCPCS: 27245; 36415; 70450; 71045; 71260; 72125; 72170; 73502; 73552; 74177; 80048; 80053; 81001; 82150; 83690; 85025; 87581; 87633; 87798; 93005; 96365; 96375; 96376; 97116; 97162; 97166; 97530; 97535; 99284; C1713; C1776; J2405; Q9967

== ENCOUNTER → 2020-02-20 13:39 | Outpatient (CLI) | payer OTHER, SELFPAY ==
--- NOTE | 2020-02-20 13:46 | XR_ITS ---
PROCEDURE: XR HIP LT 2-3V W/PELVIS CLINICAL INDICATION: s/p IMN of LT femur COMPARISON: CR XR PELVIS 1-2V from 02/12/2020 FINDINGS: Two threaded pins are seen in the femoral neck and head fixated to the long intramedullary ame stabilizing the intertrochanteric and subtrochanteric fracture the left hip. Alignment is near anatomic. Metallic sutures remain within the skin. The left iliac and left pubic bones appear intact. IMPRESSION: Satisfactory ORIF left hip fracture Dictated by: Dr. Enrrique Camacho MD 02/20/2020 14:03 Dr. Enrrique Camacho MD in [facility] 02/20/2020 14:03
--- NOTE | 2020-02-20 13:46 | XR_ITS ---
PROCEDURE: XR FEMUR LT 2V CLINICAL INDICATION: s/p IMN Lt femur COMPARISON: XA XR HIP LT 2-3V W/PELVIS from 02/12/2020 FINDINGS: The distal extent of the intramedullary ame is visualized fixated by 2 horizontally placed threaded screws at the diametaphyseal zone. There is cortical infraction medial aspect of the superior horizontal screw where the screw protrudes through the cortex of the bone. IMPRESSION: Satisfactory appearance distal intramedullary ame Dictated by: Dr. Enrrique Camacho MD 02/20/2020 14:06 Dr. Enrrique Camacho MD in [facility] 02/20/2020 14:06
== END ==
PROVIDERS: Visit Provider Orthopaedic Surgery
DX: S72.002A Fracture of unspecified part of neck of left femur, initial encounter for closed fracture (principal); W13.2XXA Fall from, out of or through roof, initial encounter
CPT/HCPCS: 73502; 73552

== ENCOUNTER → 2020-03-19 14:36 | Outpatient (CLI) | payer OTHER, SELFPAY ==
--- NOTE | 2020-03-19 14:40 | XR_ITS ---
PROCEDURE: XR FEMUR LT 2V CLINICAL INDICATION: s/p IMN left femur Follow-up fracture COMPARISON: CR XR PELVIS 1-2V from 02/12/2020 CR XR HIP LT 2-3V W/PELVIS from 02/20/2020 FINDINGS: Status post ORIF comminuted left comminuted intertrochanteric fracture. There is good alignment with 2 gamma nails and long intramedullary ame in place. There may be some early callus formation along the inferior and medial aspect of the fracture fragment. At the 2nd from most distal cortical screw there is cortical fracture along the medial aspect of the screw minimal medial angulation of the fracture fragments not significantly changed. IMPRESSION: Good alignment status post ORIF left intertrochanteric fracture. Dictated by: Karson Dahl MD 03/19/2020 15:12 Karson Dahl MD in [facility] 03/19/2020 15:12
--- NOTE | 2020-03-19 14:40 | XR_ITS ---
PROCEDURE: XR HIP LT 2-3V W/PELVIS CLINICAL INDICATION: s/p IMN left femur Follow-up fracture COMPARISON: CR XR PELVIS 1-2V from 02/12/2020 CR XR HIP LT 2-3V W/PELVIS from 02/20/2020 FINDINGS: Status post ORIF comminuted left comminuted intertrochanteric fracture. There is good alignment with 2 gamma nails and long intramedullary ame in place. There may be some early callus formation along the inferior and medial aspect of the fracture fragment. IMPRESSION: Good alignment status post ORIF left intertrochanteric fracture. Dictated by: Karson Dahl MD 03/19/2020 15:11 Karson Dahl MD in [facility] 03/19/2020 15:11
== END ==
PROVIDERS: Visit Provider Orthopaedic Surgery
DX: S72.002A Fracture of unspecified part of neck of left femur, initial encounter for closed fracture (principal); S72.143A Displaced intertrochanteric fracture of unspecified femur, initial encounter for closed fracture
CPT/HCPCS: 73502; 73552

== ENCOUNTER → 2020-04-30 14:31 | Outpatient (CLI) | payer OTHER, SELFPAY ==
--- NOTE | 2020-04-30 14:38 | XR_ITS ---
PROCEDURE: XR FEMUR LT 2V CLINICAL INDICATION: s/p Lt IMN femur Follow-up surgery COMPARISON: CR XR FEMUR LT 2V from 02/12/2020 CR XR FEMUR LT 2V from 03/19/2020 FINDINGS: Good alignment status post ORIF proximal femur fracture with increasing callus formation at the fracture site. The long intramedullary ame remains in place in good position with 2 distal screws stabilizing the ame. The most proximal of these 2 screws extends to the medial aspect of the distal tibia with splintering of the bony cortex medially with some developing callus formation.. Multiple lucencies are present at the distal tibia from prior screw tracks. IMPRESSION: Good alignment prior ORIF proximal femur fracture as described above. Dictated by: Karson Dahl MD 04/30/2020 15:19 Karson Dahl MD in [facility] 04/30/2020 15:19
--- NOTE | 2020-04-30 14:38 | XR_ITS ---
PROCEDURE: XR HIP LT 2-3V W/PELVIS CLINICAL INDICATION: s/p LT IMN femur Follow-up ORIF COMPARISON: CR XR HIP LT 2-3V W/PELVIS from 03/19/2020 FINDINGS: Status post ORIF left subtrochanteric/proximal femur fracture. Two gamma nails are present in the right femoral neck with long intramedullary ame. There is good alignment of the fracture with increasing callus formation. There is some heterotopic ossification along the greater trochanter region. IMPRESSION: Prior ORIF with healing right proximal femur fracture with good alignment. Dictated by: Karson Dahl MD 04/30/2020 15:17 Karson Dahl MD in [facility] 04/30/2020 15:17
== END ==
PROVIDERS: Visit Provider Orthopaedic Surgery
DX: S72.002A Fracture of unspecified part of neck of left femur, initial encounter for closed fracture (principal); S72.142A Displaced intertrochanteric fracture of left femur, initial encounter for closed fracture
CPT/HCPCS: 73502; 73552

== ENCOUNTER → 2020-05-31 14:04 | Outpatient (CLI) | payer OTHER, SELFPAY ==
--- NOTE | 2020-05-31 14:09 | XR_ITS ---
PROCEDURE: XR HIP LT 2-3V W/PELVIS CLINICAL INDICATION: s/p IMN L femur 02/12/2020 COMPARISON: CR XR HIP LT 2-3V W/PELVIS from 04/30/2020 CR XR FEMUR LT 2V from 05/31/2020 FINDINGS: Double gamma nails present at the left femoral neck stabilized a long intramedullary ame. There is healing nondisplaced fracture involving the subtrochanteric region of the left femur. There is good alignment of the fracture fragments. Heterotopic ossification noted along the greater trochanter IMPRESSION: Good alignment healing left subtrochanteric femur fracture Dictated by: Karson Dahl MD 05/31/2020 14:59 Karson Dahl MD in [facility] 05/31/2020 14:59
== END ==
PROVIDERS: Visit Provider Orthopaedic Surgery
DX: S72.142A Displaced intertrochanteric fracture of left femur, initial encounter for closed fracture (principal); S72.002A Fracture of unspecified part of neck of left femur, initial encounter for closed fracture
CPT/HCPCS: 73502; 73552

== ENCOUNTER → 2020-07-23 14:15 | Outpatient (CLI) | payer OTHER, SELFPAY ==
--- NOTE | 2020-07-23 14:18 | XR_ITS ---
PROCEDURE: XR FEMUR LT 2V CLINICAL INDICATION: s/p IMN L femur Follow-up intramedullary ame placement. COMPARISON: CR XR FEMUR LT 2V from 02/20/2020 CR XR FEMUR LT 2V from 03/19/2020 CR XR HIP LT 2-3V W/PELVIS from 05/31/2020 CR XR FEMUR LT 2V from 05/31/2020 FINDINGS: Status post intramedullary ame placement. There are 2 decompression screws. Cortical thickening involves the proximal femoral shaft consistent with healing fracture. There is some heterotopic ossification along the greater trochanter. There is good alignment of the intramedullary ame distally within the femur with some blistering of the cortex along the medial aspect of the distal femur adjacent to a cortical screw. This has shown some healing compared to the previous exam with overlying cortical covering of the screw. IMPRESSION: Status post ORIF of the left hip with good alignment as described above Dictated by: Karson Dahl MD 07/23/2020 15:36 Karson Dahl MD in [facility] 07/23/2020 15:37
== END ==
PROVIDERS: Visit Provider Orthopaedic Surgery
DX: S72.002A Fracture of unspecified part of neck of left femur, initial encounter for closed fracture (principal); W13.2XXA Fall from, out of or through roof, initial encounter
CPT/HCPCS: 73502; 73552